=== PATIENT | female | born 1990 | race Caucasian/White ===

== ENCOUNTER 2023-09-23 23:23 | Inpatient (IN) | payer MEDICAID, OTHER ==
[~2023-09-23] VITALS: Ht 149.9 cm; Wt 78.9 kg
[2023-09-23 23:00] VITALS: BP 140/81; PULSE 105; RESP 18; TEMP 98.4
[2023-09-23] MEDS ORDERED: CARBOPROST 250 MCG/ML AMP IM PRN (23:30)
[2023-09-23] MEDS ORDERED: METHYLERGONOVINE 0.2 MG/ML AMP IM PRN (23:30)
[2023-09-23] MEDS ORDERED: OXYTOCIN/0.9 % SODIUM CHLORIDE 500 ML IV SCH (23:30)
[2023-09-23] MEDS ORDERED: LACTATED RINGERS 500 ML IV ONE (23:30)
[2023-09-23 23:45] LABS: BASOPHILS % (AUTO) 0.2 % (0.0-2.0); EOSINOPHILS # (AUTO) 0.2 K/uL (0-0.4); EOSINOPHILS % (AUTO) 1.1 % (0.0-4.0); HEMATOCRIT 33.6 % (36-48); HEMOGLOBIN 11.7 g/dL (12.0-16.0); LYMPHOCYTES % (AUTO) 17.3 % (20.5-51.1); MEAN CORPUSCULAR HEMOGLOBIN 31 pg (27-31); MEAN CORPUSCULAR HGB CONC 35 g/dL (33-37); MEAN CORPUSCULAR VOLUME 89.4 fL (80-94); MONOCYTES # (AUTO) 1.1 K/uL (0.8-1.0); MONOCYTES % (AUTO) 6.1 % (1.7-9.3); NEUTROPHILS # (AUTO) 13.2 K/uL (1.8-7.7); NEUTROPHILS % (AUTO) 75.3 % (42.2-75.2); PLATELET COUNT (AUTO) 201 K/uL (140-450); RED BLOOD CELL COUNT(AUTO) 3.76 MIL/uL (4.20-5.40); RED CELL DISTRIBUTION WIDTH 14.1 % (11.6-13.7); WHITE BLOOD COUNT (AUTO) 17.5 K/uL (4.8-10.8)
[2023-09-23 23:52] VITALS: BP 140/81; PULSE 105
[2023-09-23] MEDS: ONDANSETRON 4 MG/2 ML VIAL IVP PRN (23:52)
[2023-09-23] MEDS: MORPHINE SULFATE 10 MG/ML VIAL IVP PRN (23:52)
[2023-09-23] MEDS: LACTATED RINGERS 1,000 ML IV SCH (23:55)
[2023-09-23 23:59] LABS: INR 0.91 (0.8-1.2); PARTIAL THROMBOPLASTIN TIME 29.7 secs (22-35.6); PROTHROMBIN TIME 9.6 secs (10.8-13.4)
[2023-09-24] LABS: ALBUMIN 2.5 g/dL (3.4-5.0); ANION GAP 14.5 (8-16); CALCIUM 9.1 mg/dL (8.5-10.1); CARBON DIOXIDE 21.2 mmol/L (21-32); CREATININE 0.6 mg/dL (0.6-1.3); POTASSIUM 3.7 mmol/L (3.5-5.1); TOTAL BILIRUBIN 0.4 mg/dL (0.0-1.0); TOTAL PROTEIN, SERUM 6.8 g/dL (6.4-8.2)
[2023-09-24 00:08] LABS: APPEARANCE,URINE CLEAR (CLEAR); BILIRUBIN,URINE NEGATIVE (NEGATIVE); BLOOD, URINE 2+ (NEGATIVE); COLOR,URINE YELLOW (YELLOW); LEUKOCYTE ESTERASE ,URINE NEGATIVE (NEGATIVE); NITRITE, URINE NEGATIVE (NEGATIVE); PROTEIN,URINE NEGATIVE (NEGATIVE); UGLUCOSE NEGATIVE (NEGATIVE); UROBILINOGEN,URINE 0.2 EU/dL (0.2 - 1)
[2023-09-24 00:09] LABS: RBC,URINE 0-5 /HPF (0-5); WBC,URINE 0-5 /HPF (0-5)
[2023-09-24 00:10] LABS: BACTERIA,URINE >30 (MANY) /HPF (None Seen); MUCUS,URINE 1+ /LPF (None Seen); SQUAMOUS EPITHELIAL CELL,UR 0-3 (FEW) /LPF (0-3 (FEW))
[2023-09-24] MEDS ORDERED: ROPIVACAINE 0.2%/NS PREMIX 200 ML EPI ONE (01:03)
[2023-09-24] MEDS ORDERED: PREN-537 PO (01:55)
[2023-09-24] MEDS ORDERED: BENZOCAINE/MENTHOL 20%-0.5% 60 GM CAN TP PRN (02:20)
[2023-09-24] MEDS ORDERED: IBUPROFEN 800 MG TAB PO PRN (02:20)
[2023-09-24] MEDS ORDERED: METHYLERGONOVINE 0.2 MG TAB PO PRN (02:20)
[2023-09-24] MEDS ORDERED: METHYLERGONOVINE 0.2 MG/ML AMP IM PRN (02:20)
[2023-09-24] MEDS ORDERED: OXYTOCIN 10 UNITS/ML VIAL IM PRN (02:20)
[2023-09-24] MEDS ORDERED: TEMAZEPAM 15 MG CAP PO PRN (02:20)
[2023-09-24] MEDS ORDERED: oxyCODONE/APAP 5/325 MG 1 TAB TAB PO PRN ×2 (02:20)
[2023-09-24] MEDS: DOCUSATE SOD/SENNA 50/8.6 MG 1 TAB PO SCH (21:00)
[2023-09-25 06:24] LABS: HEMATOCRIT 32.6 % (36-48); HEMOGLOBIN 11.1 g/dL (12.0-16.0)
== END 2023-09-25 15:20 | disposition home or self-care (01) | DRG 560 ==
LOC: MLD 23:23 → MFCC 09-24 06:30
PROVIDERS: ADMIT Obstetrics & Gynecology; ATTEND Obstetrics & Gynecology
PROC: 10E0XZZ Delivery of Products of Conception, External Approach (ICD-10-PCS; principal; 2023-09-24)
PROC: 3E0R3BZ Introduction of Anesthetic Agent into Spinal Canal, Percutaneous Approach (ICD-10-PCS; 2023-09-24)
PROC: 00HU33Z Insertion of Infusion Device into Spinal Canal, Percutaneous Approach (ICD-10-PCS; 2023-09-24)
DX: O77.0 Labor and delivery complicated by meconium in amniotic fluid (principal); Z37.0 Single live birth; Z3A.39 39 weeks gestation of pregnancy
CPT/HCPCS: 36415; 51702; 59409; 80053; 81001; 85018; 85025; 85610; 85730; 86592; 86886; 86900; 86901; 87086; J2270; J2405; J2590; J2795